=== PATIENT | male | born 1955 | race Caucasian/White ===

== ENCOUNTER 2017-04-12 15:57 | Emergency (ER) | payer OTHER ==
[~2017-04-12] VITALS: Wt 74.8 kg
== END 2017-04-12 18:05 | disposition home or self-care (01) ==
LOC: ED 15:57
DX: S01.01XA Laceration without foreign body of scalp, initial encounter (principal); W00.0XXA Fall on same level due to ice and snow, initial encounter; Y93.21 Activity, ice skating; Y92.89 Other specified places as the place of occurrence of the external cause; Y99.8 Other external cause status